=== PATIENT | female | born 1990 | race Caucasian/White ===

== ENCOUNTER 2019-12-15 18:33 | Emergency (ER) | payer OTHER ==
[2019-12-15 18:49] VITALS: BP 139/85; PULSE 98; TEMP 97.5; BMI 47.8
--- NOTE | 2019-12-15 18:49 | PDOC ---
Rapid Medical Evaluation Chief Complaint: Pain Time Seen by Provider: 12/15/19 18:46 Medical Evaluation: 12/15/19 18:46 Pt presents for RLQ pain radiating to the R leg for two months, worsening today. Hx of R sided oophorectomy Exam: TTP RLQ Orders: labs, Iv Pt to proceed to the ER for further evaluation Discharge Disposition - Diagnosis Abdominal pain Qualifiers: Abdominal location: right lower quadrant Qualified Code(s): R10.31 - Right lower quadrant pain - Referrals - Patient Instructions - Post Discharge Activity
== END 2019-12-15 20:43 | disposition left against medical advice (07) ==
LOC: JER 18:33
DX: R10.31 Right lower quadrant pain (principal)
CPT/HCPCS: 99283-25

== ENCOUNTER 2020-09-15 05:02 | Day surgery (SDC) | payer OTHER ==
[2020-08-31 09:44] VITALS: BMI 49.6
[2020-09-15] MEDS ORDERED: LIDOCAINE HCL/PF 1% SDV 5ML VIAL ONE (07:27)
[2020-09-15] MEDS ORDERED: BUPIVACAINE HCL/PF 0.75% 10 ML VIAL ONE (07:28)
[2020-09-15 09:13] VITALS: BP 124/82; PULSE 96; TEMP 97.1
== END 2020-09-15 12:20 | disposition home or self-care (01) ==
LOC: JASU-SURG 05:02
PROVIDERS: ATTEND Pain Medicine Pain Medicine
DX: Z53.8 Procedure and treatment not carried out for other reasons (principal)
CPT/HCPCS: 81025

== ENCOUNTER 2020-10-06 04:33 | Day surgery (SDC) | payer OTHER ==
[2020-10-04 16:37] VITALS: BMI 49.6
[2020-10-06] MEDS ORDERED: BUPIVACAINE HCL/PF 0.75% 10 ML VIAL ONE (07:34)
[2020-10-06] MEDS ORDERED: LIDOCAINE HCL/PF 1% SDV 5ML VIAL ONE (07:34)
[2020-10-06] MEDS ORDERED: LIDOCAINE HCL 1%, 10 MG/ML (20ML VIAL) INF ONE (15:35)
[2020-10-06] MEDS ORDERED: IOHEXOL 180 MG/1 ML ML IT ONE (15:35)
[2020-10-06] MEDS ORDERED: BUPIVACAINE HCL/PF 0.75% 10 ML VIAL PNB ONE (15:35)
[2020-10-06 16:37] VITALS: BP 126/85; PULSE 81; TEMP 97.8
== END 2020-10-06 16:10 | disposition home or self-care (01) ==
LOC: JASU-SURG 04:33
PROVIDERS: ATTEND Pain Medicine Pain Medicine
PROC: 3E0T33Z Introduction of Anti-inflammatory into Peripheral Nerves and Plexi, Percutaneous Approach (ICD-10-PCS; 2020-10-06)
PROC: 3E0T3BZ Introduction of Anesthetic Agent into Peripheral Nerves and Plexi, Percutaneous Approach (ICD-10-PCS; principal; 2020-10-06 11:15)
DX: M47.816 Spondylosis without myelopathy or radiculopathy, lumbar region (principal)
CPT/HCPCS: 76000-TC-FY